=== PATIENT | female | born 1995 | race Two or more races ===

== ENCOUNTER 2023-03-31 16:05 | Emergency (ER) | payer OTHER ==
[~2023-03-31] VITALS: Ht 160 cm; Wt 95.7 kg
[~2023-03-31 16:05] MED LIST: IBUPROFEN800 MG PO
[2023-03-31 19:22] LABS: HEMATOCRIT 37.5 % (36.0-45.00); MEAN CELL VOLUME 84.8 fL (80.00-100.00); MEAN CORPUSCULAR HEMOGLOBIN 29.3 pg (27.00-32.0); MEAN CORPUSCULAR HGB CONC 34.6 g/dl (32.0-36.0); PLATELET COUNT 226 K/uL (150-450); RED BLOOD COUNT 4.43 M/uL (4.00-6.00); RED CELL DISTRIBUTION WIDTH 12.6 % (11.5-14.5)
[2023-03-31 20:01] LABS: CALCIUM 9.2 mg/dL (8.5-10.1); CREATININE SERUM 0.58 mg/dL (0.55-1.02); GFR 124.7; POTASSIUM 3.3 mEq/L (3.5-5.1)
== END 2023-03-31 21:59 | disposition home or self-care (01) ==
LOC: ER 16:05
PROVIDERS: General Practice
DX: O21.0 Mild hyperemesis gravidarum (principal); Z3A.01 Less than 8 weeks gestation of pregnancy

== ENCOUNTER 2023-04-29 08:13 | Outpatient (CLI) | payer OTHER | END 2023-04-29 08:54 | disposition home or self-care (01) | LOC: PRENATAL 08:13 | PROVIDERS: ATTEND Obstetrics & Gynecology Maternal & Fetal Medicine | DX: O36.80X0 Pregnancy with inconclusive fetal viability, not applicable or unspecified (principal); Z36.9 Encounter for antenatal screening, unspecified; O99.210 Obesity complicating pregnancy, unspecified trimester; Z3A.11 11 weeks gestation of pregnancy ==

== ENCOUNTER 2023-06-24 08:33 | Outpatient (CLI) | payer OTHER | END 2023-06-24 10:53 | disposition home or self-care (01) | LOC: PRENATAL 08:33 | PROVIDERS: ATTEND Obstetrics & Gynecology Maternal & Fetal Medicine | DX: O35.3XX0 Maternal care for (suspected) damage to fetus from viral disease in mother, not applicable or unspecified (principal); O44.00 Complete placenta previa NOS or without hemorrhage, unspecified trimester; O99.210 Obesity complicating pregnancy, unspecified trimester; O99.891 Other specified diseases and conditions complicating pregnancy; Z3A.19 19 weeks gestation of pregnancy ==

== ENCOUNTER 2023-08-26 20:01 | Emergency (ER) | payer OTHER ==
[~2023-08-26] VITALS: Ht 160 cm; Wt 93.4 kg
[2023-08-26 21:05] LABS: HEMATOCRIT 32.4 % (36.0-45.00); HEMOGLOBIN 11.3 g/dL (12.0-15.00); MEAN CELL VOLUME 87.8 fL (80.00-100.00); MEAN CORPUSCULAR HEMOGLOBIN 30.5 pg (27.00-32.0); MEAN CORPUSCULAR HGB CONC 34.7 g/dl (32.0-36.0); PLATELET COUNT 209 K/uL (150-450); RED BLOOD COUNT 3.69 M/uL (4.00-6.00); RED CELL DISTRIBUTION WIDTH 13.3 % (11.5-14.5)
[2023-08-26 21:17] LABS: CALCIUM 8.5 mg/dL (8.5-10.1); CREATININE SERUM 0.68 mg/dL (0.55-1.02); GFR 103.03; POTASSIUM 3.41 mEq/L (3.5-5.1)
[2023-08-26] MEDS ORDERED: CEPHALEXIN500 M1 PO (23:51)
== END 2023-08-27 00:15 | disposition home or self-care (01) ==
LOC: ER 20:01
PROVIDERS: General Practice
DX: O26.893 Other specified pregnancy related conditions, third trimester (principal); L02.31 Cutaneous abscess of buttock; Z3A.29 29 weeks gestation of pregnancy

== ENCOUNTER 2023-09-22 08:48 | Outpatient (CLI) | payer OTHER ==
[~2023-09-22 08:48] MED LIST changes: +CEPHALEXIN500 M1 PO
== END 2023-09-22 08:49 | disposition home or self-care (01) ==
LOC: PRENATAL 08:48
PROVIDERS: ATTEND Obstetrics & Gynecology Maternal & Fetal Medicine
DX: O26.849 Uterine size-date discrepancy, unspecified trimester (principal); O36.8199 Decreased fetal movements, unspecified trimester, other fetus; O99.210 Obesity complicating pregnancy, unspecified trimester; O99.891 Other specified diseases and conditions complicating pregnancy; Z3A.32 32 weeks gestation of pregnancy

== ENCOUNTER 2023-10-10 23:37 | Outpatient (CLI) | payer OTHER ==
[~2023-10-10 23:37] MED LIST changes: -PRENATAL TABLE1 EAC1 PO; -ZOFRAN8 MG
[2023-10-10] MEDS ORDERED: ZOFRAN8 MG (23:49)
[2023-10-10] MEDS ORDERED: PRENATAL TABLE1 EAC1 PO (23:49)
[2023-10-11 00:22] LABS: URINE APPEARANCE Cloudy; URINE BILIRRUBIN Negative (NEGATIVE); URINE BLOOD Negative; URINE COLOR Yellow; URINE GLUCOSE Negative (NEGATIVE); URINE LEUKOCYTE Trace; URINE NITRATE Negative; URINE PROTEIN Negative (NEGATIVE)
[2023-10-11 00:23] LABS: HEMATOCRIT 35.2 % (36.0-45.00); HEMOGLOBIN 12.2 g/dL (12.0-15.00); MEAN CELL VOLUME 87.5 fL (80.00-100.00); MEAN CORPUSCULAR HEMOGLOBIN 30.2 pg (27.00-32.0); MEAN CORPUSCULAR HGB CONC 34.5 g/dl (32.0-36.0); PLATELET COUNT 204 K/uL (150-450); RED BLOOD COUNT 4.03 M/uL (4.00-6.00); RED CELL DISTRIBUTION WIDTH 13.7 % (11.5-14.5)
[2023-10-11 00:26] LABS: URINE BACTERIA 1577.1 uL (0.0-1933); URINE EPITHELIAL CELLS 12.9 uL (0.0-38.8); URINE RBC 7.3 uL (0.0-20.8)
[2023-10-11 00:41] LABS: ALBUMIN 2.6 gm/dL (3.4-5.0); BILIRUBIN TOTAL 0.29 mg/dL (0.3-1.2); CREATININE SERUM 0.58 mg/dL (0.55-1.02); GFR 123.79; GLOBULINA 3.5 G/DL (2.4-3.5); POTASSIUM 3.85 mEq/L (3.5-5.1); TOTAL PROTEIN 6.1 gm/dL (6.4-8.2)
[2023-10-11 15:26] LABS: ALBUMIN 2.6 gm/dL (3.4-5.0); BILIRUBIN TOTAL 0.27 mg/dL (0.3-1.2); CALCIUM 8.9 mg/dL (8.5-10.1); CREATININE SERUM 0.57 mg/dL (0.55-1.02); GFR 126.3; GLOBULINA 3.6 G/DL (2.4-3.5); POTASSIUM 3.59 mEq/L (3.5-5.1); TOTAL PROTEIN 6.2 gm/dL (6.4-8.2)
== END 2023-10-11 18:42 | disposition home or self-care (01) ==
LOC: OBS/DEL 23:37
PROVIDERS: Obstetrics & Gynecology; ATTEND Student in an Organized Health Care Education/Training Program
DX: O26.893 Other specified pregnancy related conditions, third trimester (principal); O21.2 Late vomiting of pregnancy; Z3A.35 35 weeks gestation of pregnancy

== ENCOUNTER → 2023-10-10 | Emergency (ER) | payer OTHER ==
[~2023-10-10] MED LIST changes: +PRENATAL TABLE1 EAC1 PO; +ZOFRAN8 MG
== END | disposition left against medical advice (07) ==
LOC: ER 21:53
DX: Z53.21 Procedure and treatment not carried out due to patient leaving prior to being seen by health care provider (principal)

== ENCOUNTER 2023-10-27 15:00 | Inpatient (IN) | payer OTHER ==
[~2023-10-27] VITALS: Ht 152.4 cm; Wt 95.3 kg
[~2023-10-27 15:00] MED LIST changes: +PRENATAL TABLE1 EAC1 PO; +ZOFRAN8 MG
[2023-10-27 16:24] LABS: HEMATOCRIT 37.6 % (36.0-45.00); MEAN CELL VOLUME 86.6 fL (80.00-100.00); MEAN CORPUSCULAR HGB CONC 34.6 g/dl (32.0-36.0); PLATELET COUNT 204 K/uL (150-450); RED BLOOD COUNT 4.34 M/uL (4.00-6.00); RED CELL DISTRIBUTION WIDTH 14.2 % (11.5-14.5)
[2023-10-27 16:44] LABS: INR < 0.93; PARTIAL THROMBOPLASTIN TIME 27.2 SECONDS (22.0-34.0); PROTHROMBIN TIME 9.5 SECONDS (9.0-11.5)
[2023-10-27 16:52] LABS: ALBUMIN 2.7 gm/dL (3.4-5.0); BILIRUBIN TOTAL 0.26 mg/dL (0.3-1.2); CALCIUM 9.4 mg/dL (8.5-10.1); CREATININE SERUM 0.64 mg/dL (0.55-1.02); GFR 110.49; POTASSIUM 3.75 mEq/L (3.5-5.1); TOTAL PROTEIN 6.7 gm/dL (6.4-8.2)
[2023-11-08] MEDS ORDERED: MISOPROSTOL 25 MCG TABLET ONE ×2 (17:20→17:23)
[2023-11-08] MEDS ORDERED: MISOPROSTOL 25 MCG TABLET VAG ONE (18:00)
[2023-11-09] MEDS ORDERED: MISOPROSTOL 25 MCG/4 ML GEL.W.APPL ONE (07:21)
[2023-11-09] MEDS ORDERED: MORPHINE SULFATE 4 MG/ML VIAL IV PRN (08:45)
[2023-11-09] MEDS ORDERED: OXYTOCIN 500 ML IV SCH (08:45)
[2023-11-09] MEDS ORDERED: ERYTHROMYCIN BASE 1 GM TUBE OP ONE (09:10)
[2023-11-09] MEDS ORDERED: CHLORHEXIDINE GLUCONATE 120 ML BOTTLE TOP ONE (09:10)
[2023-11-09] MEDS ORDERED: BENZOCAINE/MENTHOL 90 ML BOTTLE TOP PRN (14:30)
[2023-11-09] MEDS ORDERED: ACETAMINOPHEN 500 MG GEL..CAP PO PRN (14:30)
[2023-11-09] MEDS ORDERED: CHLORHEXIDINE GLUCONATE 120 ML BOTTLE TP SCH (14:45)
[2023-11-09] MEDS ORDERED: OXYTOCIN 1,000 ML IV SCH (14:45)
[2023-11-09] MEDS ORDERED: ERYTHROMYCIN BASE 1 GM TUBE OP SCH (14:45)
[2023-11-09] MEDS ORDERED: LIDOCAINE HCL 1% 200MG/20ML VIAL IJ SCH (14:45)
[2023-11-10 07:21] LABS: HEMATOCRIT 33.5 % (36.0-45.00); HEMOGLOBIN 11.5 g/dL (12.0-15.00); MEAN CELL VOLUME 88.6 fL (80.00-100.00); MEAN CORPUSCULAR HEMOGLOBIN 30.6 pg (27.00-32.0); MEAN CORPUSCULAR HGB CONC 34.5 g/dl (32.0-36.0); PLATELET COUNT 175 K/uL (150-450); RED BLOOD COUNT 3.78 M/uL (4.00-6.00); RED CELL DISTRIBUTION WIDTH 14.5 % (11.5-14.5)
[2023-11-10] MEDS ORDERED: PNV,CALCIUM 72/IRON/FOLIC ACID 1 TAB TABLET PO SCH (09:00)
[2023-11-10] MEDS ORDERED: FF) RHO(D) IMMUNE GLOBULIN (POM) IM ONE (13:15)
== END 2023-11-11 15:08 | disposition home or self-care (01) | DRG 807 ==
LOC: LDR 11-08 14:19 → OB/GYN 11-09 15:54 → LDR 11-12 15:00
PROVIDERS: Obstetrics & Gynecology; ADMIT Obstetrics & Gynecology; ATTEND Obstetrics & Gynecology
PROC: 3E0P7VZ Introduction of Hormone into Female Reproductive, Via Natural or Artificial Opening (ICD-10-PCS; 2023-11-08)
PROC: 4A1HXCZ Monitoring of Products of Conception, Cardiac Rate, External Approach (ICD-10-PCS; 2023-11-08)
PROC: 10E0XZZ Delivery of Products of Conception, External Approach (ICD-10-PCS; principal; 2023-11-09)
PROC: 0HQ9XZZ Repair Perineum Skin, External Approach (ICD-10-PCS; 2023-11-09)
PROC: 3E033VJ Introduction of Other Hormone into Peripheral Vein, Percutaneous Approach (ICD-10-PCS; 2023-11-09)
DX: O70.0 First degree perineal laceration during delivery (principal); Z37.0 Single live birth; Z3A.39 39 weeks gestation of pregnancy; Z20.822 Contact with and (suspected) exposure to COVID-19

== ENCOUNTER 2023-11-06 17:29 | Outpatient (CLI) | payer OTHER ==
[~2023-11-06] VITALS: Ht 160 cm; Wt 95.3 kg
[2023-11-06 18:03] LABS: HEMATOCRIT 35.6 % (36.0-45.00); HEMOGLOBIN 12.4 g/dL (12.0-15.00); MEAN CELL VOLUME 86.5 fL (80.00-100.00); MEAN CORPUSCULAR HEMOGLOBIN 30.2 pg (27.00-32.0); PLATELET COUNT 186 K/uL (150-450); RED BLOOD COUNT 4.12 M/uL (4.00-6.00); RED CELL DISTRIBUTION WIDTH 14.4 % (11.5-14.5); URINE APPEARANCE Cloudy; URINE BILIRRUBIN Small (NEGATIVE); URINE BLOOD Moderate; URINE COLOR Dark Yellow; URINE GLUCOSE Negative (NEGATIVE); URINE LEUKOCYTE Trace; URINE NITRATE Negative; URINE PROTEIN Negative (NEGATIVE)
[2023-11-06 18:07] LABS: URINE BACTERIA 2619.1 uL (0.0-1933); URINE EPITHELIAL CELLS 27.9 uL (0.0-38.8); URINE RBC 150.1 uL (0.0-20.8); URINE WBC 42.5 uL (0.0-23.2)
== END 2023-11-07 13:19 | disposition home or self-care (01) ==
LOC: OBS/DEL 17:29
PROVIDERS: Obstetrics & Gynecology; ATTEND Student in an Organized Health Care Education/Training Program
DX: O26.93 Pregnancy related conditions, unspecified, third trimester (principal); Z3A.39 39 weeks gestation of pregnancy; R10.2 Pelvic and perineal pain

== ENCOUNTER 2023-11-08 02:11 | Outpatient (CLI) | payer OTHER ==
[2023-11-08] MEDS ORDERED: RINGERS SOLUTION,LACTATED 1,000 ML IV SCH (02:30)
== END 2023-11-08 14:18 | disposition still patient (30) ==
LOC: OBS/DEL 02:11
PROVIDERS: ATTEND Student in an Organized Health Care Education/Training Program
DX: O26.893 Other specified pregnancy related conditions, third trimester (principal)

== ENCOUNTER 2023-12-16 03:16 | Inpatient (IN) | payer OTHER ==
[~2023-12-16] VITALS: Ht 160 cm; Wt 86.6 kg
--- NOTE | 2023-12-16 03:39 | NUR ---
PTE ALERTA Y ORIENTADA X3 REFIERE ESTAR VOMITANDO DESDE MEDIA NOCHE. PTE REFIERE CONNER SIDO VOMITOS X6. SE MIDEN VITALES Y SE UBICA
[2023-12-16] MEDS ORDERED: MEPERIDINE HCL/PF 25 MG/ML VIAL IM STA (04:32)
[2023-12-16] MEDS ORDERED: FAMOTIDINE/PF 20 MG/2 ML VIAL IV PUSH STA (04:33)
[2023-12-16] MEDS ORDERED: PROMETHAZINE HCL 50 MG/ML AMPUL IM STA (04:33)
[2023-12-16] MEDS ORDERED: RINGERS SOLUTION,LACTATED 1,000 ML IV ONE (04:45)
--- NOTE | 2023-12-16 04:54 | NUR ---
PACIENTE EVALUADA POR . SE ORIENTA SOBRE TX MEDICO, REFIERE ENTENDER. SE REALIZAN MUESTRAS DE LABORATORIO BAJO MEDIDAS ASEPTICAS. SE ADMINISTRAN MEDICAMENTOS LAUREN ORDEN MEDICA. SE COORDINA SONOGRAMA. PENDIENTE RE-EVALUACION MEDICA.
[2023-12-16] MEDS ORDERED: 0.9 % SODIUM CHLORIDE 1,000 ML IV SCH ×2 (05:00→12:00)
[2023-12-16 05:25] LABS: HEMATOCRIT 39.4 % (36.0-45.00); HEMOGLOBIN 13.5 g/dL (12.0-15.00); MEAN CELL VOLUME 86.5 fL (80.00-100.00); MEAN CORPUSCULAR HEMOGLOBIN 29.7 pg (27.00-32.0); MEAN CORPUSCULAR HGB CONC 34.3 g/dl (32.0-36.0); PLATELET COUNT 213 K/uL (150-450); RED BLOOD COUNT 4.55 M/uL (4.00-6.00); RED CELL DISTRIBUTION WIDTH 13.4 % (11.5-14.5)
[2023-12-16 05:40] LABS: INR 0.96; PARTIAL THROMBOPLASTIN TIME 25.8 SECONDS (22.0-34.0); PROTHROMBIN TIME 10.1 SECONDS (9.0-11.5)
[2023-12-16 05:47] LABS: ALBUMIN 3.6 gm/dL (3.4-5.0); BILIRUBIN TOTAL 0.8 mg/dL (0.3-1.2); BILIRUBIN,CONJUGATED 0.33 mg/dL (0.0-0.2); BILIRUBIN,UNCONJUGATED 0.47 mg/dL (0.0-0.6); CALCIUM 9.2 mg/dL (8.5-10.1); CREATININE SERUM 0.88 mg/dL (0.55-1.02); GFR 76.51; POTASSIUM 3.49 mEq/L (3.5-5.1); TOTAL PROTEIN 7.6 gm/dL (6.4-8.2)
[2023-12-16 06:42] LABS: PH,URINE 7.5 (5.0-8.0); URINE APPEARANCE Clear; URINE BILIRRUBIN Negative (NEGATIVE); URINE BLOOD Negative; URINE COLOR Yellow; URINE GLUCOSE Negative (NEGATIVE); URINE LEUKOCYTE Moderate; URINE NITRATE Negative; URINE PROTEIN Negative (NEGATIVE); URINE UROBILINOGEN 0.2 E.U./dl
[2023-12-16 06:44] LABS: URINE BACTERIA 767.2 uL (0.0-1933); URINE RBC 7.3 uL (0.0-20.8); URINE WBC 75.5 uL (0.0-23.2)
--- NOTE | 2023-12-16 07:23 | NUR ---
SE RECIBE PTE ALERTA ORIENTADO X3.VENOPUNCION PATENTE KATHRIN DE EDEMA Y ERITEMA RECIBIENDO 0.9 NSS BAJANDO A 150ML/HR.PENDIENTE RESULTADOS DE LABORATORIO PARA REEVALUAR.
[2023-12-16] MEDS ORDERED: CEFTRIAXONE SODIUM 1,000 MG VIAL IV STA (08:49)
[2023-12-16] MEDS ORDERED: FAMOTIDINE/PF 20 MG/2 ML VIAL IV SCH (11:56)
[2023-12-16] MEDS ORDERED: ONDANSETRON HCL 4 MG in 0.9 % SODIUM CHLORIDE 50 ML IV PRN (12:00)
[2023-12-16] MEDS ORDERED: PIPERACILLIN/TAZOBACTAM SODIUM 3.375 GM in 0.9 % SODIUM CHLORIDE 100 ML IV SCH (12:00)
[2023-12-16] MEDS ORDERED: MORPHINE SULFATE 2 MG/ML CARTRIDGE IV SCH (13:00)
[2023-12-16 16:41] LABS: INR 1.04; PARTIAL THROMBOPLASTIN TIME 30.4 SECONDS (22.0-34.0); PROTHROMBIN TIME 10.9 SECONDS (9.0-11.5)
[2023-12-17 06:24] LABS: HEMOGLOBIN 13.1 g/dL (12.0-15.00); MEAN CELL VOLUME 86.1 fL (80.00-100.00); MEAN CORPUSCULAR HEMOGLOBIN 29.7 pg (27.00-32.0); MEAN CORPUSCULAR HGB CONC 34.5 g/dl (32.0-36.0); PLATELET COUNT 180 K/uL (150-450); RED BLOOD COUNT 4.41 M/uL (4.00-6.00); RED CELL DISTRIBUTION WIDTH 13.9 % (11.5-14.5)
[2023-12-17 06:55] LABS: ALBUMIN 3.1 gm/dL (3.4-5.0); BILIRUBIN TOTAL 0.47 mg/dL (0.3-1.2); CALCIUM 8.5 mg/dL (8.5-10.1); CREATININE SERUM 0.72 mg/dL (0.55-1.02); GFR 96.45; GLOBULINA 3.4 G/DL (2.4-3.5); POTASSIUM 3.44 mEq/L (3.5-5.1); TOTAL PROTEIN 6.5 gm/dL (6.4-8.2)
[2023-12-17 11:08] LABS: BILIRUBIN TOTAL 0.57 mg/dL (0.3-1.2); BILIRUBIN,CONJUGATED 0.13 mg/dL (0.0-0.2); BILIRUBIN,UNCONJUGATED 0.44 mg/dL (0.0-0.6)
[2023-12-17] MEDS ORDERED: PIPERACILLIN/TAZOBACTAM SODIUM 3.375 GM VIAL IV ONE (16:24)
[2023-12-20 06:53] LABS: HEMATOCRIT 41.3 % (36.0-45.00); HEMOGLOBIN 14.4 g/dL (12.0-15.00); MEAN CELL VOLUME 86.2 fL (80.00-100.00); MEAN CORPUSCULAR HGB CONC 34.8 g/dl (32.0-36.0); PLATELET COUNT 249 K/uL (150-450); RED BLOOD COUNT 4.79 M/uL (4.00-6.00); RED CELL DISTRIBUTION WIDTH 13.4 % (11.5-14.5)
[2023-12-20 06:55] LABS: ALBUMIN 3.3 gm/dL (3.4-5.0); BILIRUBIN TOTAL 0.4 mg/dL (0.3-1.2); CALCIUM 9.5 mg/dL (8.5-10.1); CREATININE SERUM 0.84 mg/dL (0.55-1.02); GFR 80.73; POTASSIUM 3.98 mEq/L (3.5-5.1); TOTAL PROTEIN 7.3 gm/dL (6.4-8.2)
[2023-12-20] MEDS ORDERED: LIDOCAINE HCL 1%/Epi 20ML VIAL IJ ONE ×2 (07:43→08:30)
[2023-12-20] MEDS ORDERED: BUPIVACAINE HCL/PF 0.5% 30ML ML ONE (07:43)
[2023-12-20] MEDS ORDERED: KETOROLAC TROMETHAMINE 30 MG VIAL IV PRN (07:45)
[2023-12-20] MEDS ORDERED: PIPERACILLIN/TAZOBACTAM SODIUM 3.375 GM VIAL IV ONE ×2 (08:16→08:30)
[2023-12-20] MEDS ORDERED: ISOPROPYL ALCOHOL 30 ML OUNCE TOP ONE (08:30)
[2023-12-20] MEDS ORDERED: BUPIVACAINE HCL 30 ML VIAL IJ ONE (08:30)
[2023-12-20] MEDS ORDERED: ONDANSETRON HCL 2 MG/ML VIAL ONE (09:20)
[2023-12-20] MEDS ORDERED: 0.9 % SODIUM CHLORIDE 1,000 ML IV SCH (09:30)
[2023-12-21 06:27] LABS: HEMATOCRIT 38.8 % (36.0-45.00); HEMOGLOBIN 13.4 g/dL (12.0-15.00); MEAN CELL VOLUME 85.1 fL (80.00-100.00); MEAN CORPUSCULAR HEMOGLOBIN 29.4 pg (27.00-32.0); MEAN CORPUSCULAR HGB CONC 34.6 g/dl (32.0-36.0); PLATELET COUNT 219 K/uL (150-450); RED BLOOD COUNT 4.56 M/uL (4.00-6.00); RED CELL DISTRIBUTION WIDTH 13.5 % (11.5-14.5)
[2023-12-21 06:49] LABS: ALBUMIN 2.9 gm/dL (3.4-5.0); BILIRUBIN TOTAL 0.4 mg/dL (0.3-1.2); CALCIUM 8.5 mg/dL (8.5-10.1); CREATININE SERUM 0.74 mg/dL (0.55-1.02); GFR 93.45; GLOBULINA 3.4 G/DL (2.4-3.5); POTASSIUM 3.6 mEq/L (3.5-5.1); TOTAL PROTEIN 6.3 gm/dL (6.4-8.2)
== END 2023-12-22 15:04 | disposition home or self-care (01) | DRG 419 ==
LOC: ER 03:16 → SEC-K 13:42 → SURH 13:42 → SEC-K 13:51 → SURH 16:29 → O/R 12-20 14:51 → SURH 12-20 14:53
PROVIDERS: General Practice; Surgery; ADMIT Internal Medicine; ATTEND Internal Medicine
PROC: 0FT44ZZ Resection of Gallbladder, Percutaneous Endoscopic Approach (ICD-10-PCS; principal; 2023-12-16)
PROC: 0WQF4ZZ Repair Abdominal Wall, Percutaneous Endoscopic Approach (ICD-10-PCS; 2023-12-16)
PROC: BW40ZZZ Ultrasonography of Abdomen (ICD-10-PCS; 2023-12-16)
PROC: BF37ZZZ Magnetic Resonance Imaging (MRI) of Pancreas (ICD-10-PCS; 2023-12-16)
DX: K80.10 Calculus of gallbladder with chronic cholecystitis without obstruction (principal); K43.9 Ventral hernia without obstruction or gangrene; D72.829 Elevated white blood cell count, unspecified

== ENCOUNTER 2024-05-18 09:36 | Emergency (ER) | payer OTHER ==
[~2024-05-18] VITALS: Ht 160 cm; Wt 86.2 kg
[2024-05-18] MEDS ORDERED: ONDANSETRON HCL 2 MG/ML VIAL IV STA (10:14)
[2024-05-18] MEDS ORDERED: FAMOTIDINE/PF 20 MG in 0.9 % SODIUM CHLORIDE 8 ML IV PUSH STA (10:14)
[2024-05-18] MEDS ORDERED: 0.9 % SODIUM CHLORIDE 1,000 ML IV STA (10:14)
[2024-05-18] MEDS ORDERED: FAMOTIDINE/PF 20 MG/2 ML VIAL ONE (10:24)
[2024-05-18] MEDS ORDERED: ONDANSETRON HCL 2 MG/ML VIAL ONE (10:24)
[2024-05-18 11:02] LABS: HEMATOCRIT 41.9 % (36.0-45.00); HEMOGLOBIN 14.7 g/dL (12.0-15.00); MEAN CELL VOLUME 84.9 fL (80.00-100.00); MEAN CORPUSCULAR HEMOGLOBIN 29.8 pg (27.00-32.0); MEAN CORPUSCULAR HGB CONC 35.1 g/dl (32.0-36.0); PLATELET COUNT 214 K/uL (150-450); RED BLOOD COUNT 4.93 M/uL (4.00-6.00); RED CELL DISTRIBUTION WIDTH 13.6 % (11.5-14.5)
[2024-05-18 11:35] LABS: CALCIUM 9.8 mg/dL (8.5-10.1); CREATININE SERUM 0.87 mg/dL (0.55-1.02); GFR 77.53; POTASSIUM 3.74 mEq/L (3.5-5.1)
== END 2024-05-18 14:41 | disposition home or self-care (01) ==
LOC: ER 09:37
PROVIDERS: Emergency Medicine
DX: R10.9 Unspecified abdominal pain (principal); R11.10 Vomiting, unspecified

== ENCOUNTER 2025-06-10 13:19 | Emergency (ER) | payer OTHER ==
[~2025-06-10] VITALS: Ht 160 cm; Wt 95.3 kg
[2025-06-10 15:31] LABS: URINE APPEARANCE Cloudy; URINE BILIRRUBIN Negative (NEGATIVE); URINE BLOOD Negative; URINE COLOR Yellow; URINE GLUCOSE Negative (NEGATIVE); URINE KETONE Trace (NEGATIVE); URINE LEUKOCYTE Moderate; URINE NITRATE Negative; URINE PROTEIN Trace (NEGATIVE); URINE UROBILINOGEN 1.0 E.U./dl
[2025-06-10 16:07] LABS: URINE RBC 0-3 /HPF; URINE WBC 41-50 /hpf
[2025-06-10 16:08] LABS: URINE BACTERIA MANY; URINE CRYSTALS FEW /HPF
[2025-06-10] MEDS ORDERED: CEFTRIAXONE SODIUM 1,000 MG VIAL IM ONE (16:15)
[2025-06-11] MEDS ORDERED: DICLOFENAC SODI75 MG PO (22:54)
== END 2025-06-10 16:17 | disposition home or self-care (01) ==
LOC: ER 13:37
PROVIDERS: General Practice
DX: N39.0 Urinary tract infection, site not specified (principal)

== ENCOUNTER 2025-06-11 20:54 | Emergency (ER) | payer OTHER ==
[~2025-06-11] VITALS: Ht 160 cm; Wt 95.3 kg
[2025-06-11] MEDS ORDERED: KETOROLAC TROMETHAMINE 30 MG VIAL IV ONE (22:00)
[2025-06-11] MEDS ORDERED: 0.9 % SODIUM CHLORIDE 1,000 ML IV SCH (22:00)
[2025-06-11 22:19] LABS: BASO % 0.2 % (0.1-1.2); EOS # 0.00 (0.04-0.54); EOS % 0.0 % (0.7-7.0); LYMPH # 1.19 (1.18-3.74); LYMPH % 10.1 % (19.3-53.1); MEAN PLATELET VOLUME 11.00 fl (9.4-12.4); MONO # 0.47 (0.24-0.82); MONO % 4.0 % (4.7-12.5); NEUT # 10.03 (1.56-6.13); NEUT % 85.4 % (34.0-71.1); RED CELL DISTRIBUTION WIDTH 11.9 % (11.6-14.4)
[2025-06-11 22:40] LABS: INR 1.05
[2025-06-11] MEDS ORDERED: DICLOFENAC SODI75 MG PO (22:54)
[2025-06-11 23:07] LABS: URINE APPEARANCE Clear; URINE BILIRRUBIN Negative (NEGATIVE); URINE BLOOD Negative; URINE COLOR Yellow; URINE GLUCOSE Negative (NEGATIVE); URINE LEUKOCYTE Negative; URINE NITRATE Negative; URINE PROTEIN Negative (NEGATIVE); URINE UROBILINOGEN 0.2 E.U./dl
[2025-06-11 23:11] LABS: URINE EPITHELIAL CELLS 8.3 uL (0.0-38.8); URINE RBC 5.1 uL (0.0-20.8); URINE WBC 4.1 uL (0.0-23.2)
[2025-06-11 23:23] LABS: URINE BACTERIA 1.1 uL (0.0-1933); URINE CAST 0.00 uL (0.0-1.40); URINE KETONE 40 (NEGATIVE)
== END 2025-06-11 23:13 | disposition home or self-care (01) ==
LOC: ER 20:54
PROVIDERS: General Practice
DX: N83.209 Unspecified ovarian cyst, unspecified side (principal); R10.2 Pelvic and perineal pain